=== PATIENT | male | born 1975 | race Caucasian/White ===

== ENCOUNTER 2018-11-16 14:57 | Emergency (ER) | payer OTHER ==
[~2018-11-16] VITALS: Ht 193 cm; Wt 108.9 kg
[~2018-11-16 14:57] MED LIST: IBUP800 PO
[2018-11-16 15:52] LABS: Source, Urine Clean Catch
[2018-11-16 15:53] LABS: BASOPHILS ABSOLUTE AUTO 0.08 K/mm3 (0.00-0.23); BASOPHILS PERCENT AUTO 1 % (0-2); EOSINOPHILS ABSOLUTE AUTO 0.44 K/mm3 (0.00-0.68); EOSINOPHILS PERCENT AUTO 4 % (0-6); Hematocrit 41.7 % (37.0-53.0); Hemoglobin 13.6 g/dL (13.5-17.5); IMMATURE GRAN ABSOLUTE AUTO 0.03 K/mm3 (0.00-0.10); IMMATURE GRAN PERCENT AUTO 0 % (0-1); LYMPHOCYTES ABSOLUTE AUTO 3.28 K/mm3 (0.84-5.20); LYMPHOCYTES PERCENT AUTO 32 % (21-46); MONOCYTES ABSOLUTE AUTO 0.86 K/mm3 (0.16-1.47); MONOCYTES PERCENT AUTO 8 % (4-13); Mean Corpuscular HGB 30.7 pg (26.0-34.0); Mean Corpuscular HGB Conc 32.6 g/dL (31.5-36.5); Mean Corpuscular Volume 94 fL (80-100); Mean Platelet Volume 10.8 fL (9.1-12.4); NEUTROPHILS ABSOLUTE AUTO 5.59 K/mm3 (1.96-9.15); NEUTROPHILS PERCENT AUTO 54 % (41-73); Platelet Count 230 K/mm3 (150-400); RDW Coefficient Variation 12.3 % (11.7-14.2); Red Blood Cell Count 4.43 M/mm3 (4.30-5.90); White Blood Cell Count 10.28 K/mm3 (4.00-11.30)
[2018-11-16 15:59] LABS: Bilirubin, Urine Neg (Neg); Blood, Urine 5+ (Neg); Glucose Qualitative, Urine Neg (Neg); Ketones, Urine 1+ (Neg); Leukocyte Esterase, Urine 1+ (Neg); Nitrite, Urine Neg (Neg); Protein, Urine 2+ (Neg); Urobilinogen, Urine NORM (Normal)
[2018-11-16 16:11] LABS: Amorphous Mod ({null, 0-Heavy}); Appearance, Urine Cloudy (Clear); Bacteria Mod /hpf; Color, Urine Yellow (P-Yellow); Mucus Light ({null, 0-Heavy}); Red Blood Cells, Urine TNTC /hpf (0-2); Squamous Epithelial Cells Rare /hpf (Few)
[2018-11-16 16:14] LABS: Alanine Aminotransfer (ALT/SGP 37 U/L (12-78); Albumin, Blood 3.7 g/dL (3.4-5.0); Albumin/Globulin Ratio 0.9 (0.8-1.8); Alk Phos 78 U/L (50-136); Anion Gap 1 mmol/L (6-16); Aspartate Aminotrans (AST/SGOT 23 U/L (12-37); Bilirubin, Total 0.2 mg/dL (0.1-1.0); Blood Urea Nitrogen 12 mg/dL (8-24); Bun/Creatinine Ratio 15.6 (12.0-20.0); CO2, Blood 29 mmol/L (21-32); Chloride, Blood 109 mmol/L (98-108); Creatinine, Blood 0.77 mg/dL (0.60-1.20); Globulin, Blood 4.1 g/dL (2.2-4.0); Glomerular Filtration Rate >60 (60-); Glucose, Blood 103 mg/dL (70-99); Potassium, Blood 3.9 mmol/L (3.5-5.5); Sodium, Blood 139 mmol/L (136-145); Total Protein, Blood 7.8 g/dL (6.4-8.2)
[2018-11-16] MEDS ORDERED: NAPR500 PO (17:45)
[2018-11-16] MEDS ORDERED: ONDA4ODT MM (18:30)
[2018-11-16] MEDS ORDERED: Flomax0.4 MG PO (18:30)
[2018-11-16] MEDS ORDERED: Vibramycin100 MG PO (18:30)
== END 2018-11-16 18:45 | disposition home or self-care (01) ==
LOC: ER 14:57
PROVIDERS: Physician Assistant
DX: N20.0 Calculus of kidney (principal); K40.90 Unilateral inguinal hernia, without obstruction or gangrene, not specified as recurrent; K02.9 Dental caries, unspecified; K59.00 Constipation, unspecified; F17.200 Nicotine dependence, unspecified, uncomplicated; Z88.0 Allergy status to penicillin
CPT/HCPCS: 36415; 74177; 80053; 81001; 85025; 87086; 99284-25; Q9967

== ENCOUNTER 2018-12-01 10:25 | Day surgery (SDC) | payer OTHER ==
[~2018-12-01] VITALS: Ht 193 cm; Wt 115.9 kg
[~2018-12-01 10:25] MED LIST changes: +Flomax0.4 MG PO; +NAPR500 PO; +ONDA4ODT MM; +Vibramycin100 MG PO
--- NOTE | 2018-12-01 12:25 | NUR ---
12/01/18 1225 Basia Cornejo PT. EMOTIONAL AT TIMES. VERBALIZING HOW HIS HAS BEEN MISSING & HE MISSES HER.
== END 2018-12-01 12:10 | disposition home or self-care (01) ==
LOC: ORSCSDS 10:25
PROVIDERS: Surgery
PROC: 0DJD8ZZ Inspection of Lower Intestinal Tract, Via Natural or Artificial Opening Endoscopic (ICD-10-PCS; principal; 2018-12-01 11:30)
DX: R10.9 Unspecified abdominal pain (principal); K92.1 Melena; K64.8 Other hemorrhoids; K59.00 Constipation, unspecified; E66.9 Obesity, unspecified; Z68.32 Body mass index [BMI] 32.0-32.9, adult; F17.210 Nicotine dependence, cigarettes, uncomplicated; Z79.899 Other long term (current) drug therapy
CPT/HCPCS: J2704; J7120

== ENCOUNTER → 2019-05-30 | Outpatient (CLI) | payer OTHER ==
[2019-05-31 14:29] LABS: Stool Occult Bld Immuno 1 Negative (NEGATIVE)
== END ==
LOC: LAB EV 09:30
PROVIDERS: Physician Assistant
DX: K92.1 Melena (principal)
CPT/HCPCS: 82274

== ENCOUNTER 2019-07-17 06:19 | Emergency (ER) | payer OTHER ==
[~2019-07-17] VITALS: Ht 193 cm; Wt 117.9 kg
[2019-07-17 07:01] LABS: BASOPHILS ABSOLUTE AUTO 0.05 K/mm3 (0.00-0.23); BASOPHILS PERCENT AUTO 0 % (0-2); EOSINOPHILS ABSOLUTE AUTO 0.08 K/mm3 (0.00-0.68); EOSINOPHILS PERCENT AUTO 1 % (0-6); Hematocrit 46.2 % (37.0-53.0); Hemoglobin 15.2 g/dL (13.5-17.5); IMMATURE GRAN ABSOLUTE AUTO 0.06 K/mm3 (0.00-0.10); IMMATURE GRAN PERCENT AUTO 0 % (0-1); LYMPHOCYTES ABSOLUTE AUTO 2.17 K/mm3 (0.84-5.20); LYMPHOCYTES PERCENT AUTO 14 % (21-46); MONOCYTES ABSOLUTE AUTO 1.04 K/mm3 (0.16-1.47); MONOCYTES PERCENT AUTO 7 % (4-13); Mean Corpuscular HGB 29.2 pg (26.0-34.0); Mean Corpuscular HGB Conc 32.9 g/dL (31.5-36.5); Mean Corpuscular Volume 89 fL (80-100); NEUTROPHILS ABSOLUTE AUTO 12.29 K/mm3 (1.96-9.15); NEUTROPHILS PERCENT AUTO 78 % (41-73); Platelet Count 260 K/mm3 (150-400); RDW Standard Deviation 42.4 fL (35.1-46.3); Red Blood Cell Count 5.21 M/mm3 (4.30-5.90); White Blood Cell Count 15.69 K/mm3 (4.00-11.30)
[2019-07-17 07:18] LABS: Alanine Aminotransfer (ALT/SGP 51 U/L (12-78); Albumin, Blood 3.6 g/dL (3.4-5.0); Albumin/Globulin Ratio 0.8 (0.8-1.8); Alk Phos 74 U/L (50-136); Anion Gap 6 mmol/L (6-16); Aspartate Aminotrans (AST/SGOT 26 U/L (12-37); Bilirubin, Total 0.2 mg/dL (0.1-1.0); Blood Urea Nitrogen 15 mg/dL (8-24); Bun/Creatinine Ratio 15.2 (12.0-20.0); CO2, Blood 23 mmol/L (21-32); Chloride, Blood 110 mmol/L (98-108); Creatinine, Blood 0.98 mg/dL (0.60-1.20); Globulin, Blood 4.6 g/dL (2.2-4.0); Glomerular Filtration Rate >60 (60-); Glucose, Blood 134 mg/dL (70-99); Potassium, Blood 4.3 mmol/L (3.5-5.5); Sodium, Blood 139 mmol/L (136-145); Total Protein, Blood 8.2 g/dL (6.4-8.2)
[2019-07-17] MEDS ORDERED: Percocet 5-3251 EACH PO (08:05)
[2019-07-17] MEDS ORDERED: TAMS.4ER PO (08:05)
[2019-07-17 08:54] LABS: Source, Urine Clean Catch
[2019-07-17 09:21] LABS: Bilirubin, Urine Neg (Neg); Blood, Urine 5+ (Neg); Glucose Qualitative, Urine Neg (Neg); Ketones, Urine Neg (Neg); Leukocyte Esterase, Urine Neg (Neg); Nitrite, Urine Neg (Neg); Protein, Urine Neg (Neg); Urobilinogen, Urine NORM (Normal)
[2019-07-17 09:33] LABS: Appearance, Urine Clear (Clear); Color, Urine Yellow (P-Yellow)
[2019-07-17 09:35] LABS: Red Blood Cells, Urine 25-50 /hpf (0-2); White Blood Cells, Urine 0-2 /hpf (0-5)
[2019-07-17 09:36] LABS: Bacteria Not Seen /hpf; Squamous Epithelial Cells Rare /hpf (Few)
== END 2019-07-17 10:30 | disposition home or self-care (01) ==
LOC: ER 06:19
PROVIDERS: Emergency Medicine
DX: N13.2 Hydronephrosis with renal and ureteral calculous obstruction (principal); Z88.0 Allergy status to penicillin; Z87.891 Personal history of nicotine dependence; Z87.442 Personal history of urinary calculi
CPT/HCPCS: 74176; 80053; 81001; 83690; 85025; 96361; 96374; 96375; 96376; 99284-25; J1170; J1885; J2405; J7030

== ENCOUNTER → 2019-09-15 | Outpatient (CLI) | payer OTHER ==
[~2019-09-15] MED LIST changes: +Percocet 5-3251 EACH PO; +TAMS.4ER PO
[2019-09-22 13:47] LABS: BRUSHITE 3.39 ratio (0.00-3.00); CALCIUM OXALATE 9.39 ratio (0.00-6.00); CALCIUM, URINE 20.5 mg/dL (Not Estab.); CALCIUM, URINE 281.9 mg/24 hr (100.0-300.0); CHLORIDE URINE 120 (110-250); CITRIC ACID (CITRATE) 167 mg/L (Not Estab.); CITRIC ACID(CITRATE) 230 mg/24 hr (320-1240); CREATININE, URINE 135.4 mg/dL (Not Estab.); CREATININE, URINE 1861.8 mg/24 hr (1000.0-2000.0); MAGNESIUM, URINE 8.9 mg/dL (Not Estab.); MONOSODIUM URATE 5.79 ratio (0.00-4.00); OSMOLALITY, URINE 601 (300-900); SODIUM, URINE 106 mmol/L (Not Estab.); SODIUM, URINE 146 (58-337); STRUVITE 0.03 ratio (0.00-1.00); URIC ACID 3.45 ratio (0.00-1.20); URINE VOLUME 1375 mL/24 hr (800-1800); URINE VOLUME (PRESERVATIVE) 1375 mL/24 hr (800-1800)
== END | disposition home or self-care (01) ==
LOC: LAB SHORT 09:28 → LAB 09:28 → LAB FUT 08-20 15:20 → EDSTATUS 08-20 15:20
PROVIDERS: Urology
DX: N20.1 Calculus of ureter (principal)
CPT/HCPCS: 81003; 81050; 82131; 82140; 82340; 82436; 82507; 82570; 83735; 83935; 83945; 84105; 84133; 84300; 84392; 84560

== ENCOUNTER → 2020-01-19 | Outpatient (CLI) | payer OTHER ==
[2020-01-30 12:01] LABS: BRUSHITE 1.27 ratio (0.00-3.00); CALCIUM OXALATE 11.09 ratio (0.00-6.00); CALCIUM, URINE 15.5 mg/dL (Not Estab.); CALCIUM, URINE 263.5 mg/24 hr (100.0-300.0); CHLORIDE URINE 146 (110-250); CITRIC ACID (CITRATE) 138 mg/L (Not Estab.); CITRIC ACID(CITRATE) 235 mg/24 hr (320-1240); CREATININE, URINE 143.7 mg/dL (Not Estab.); CREATININE, URINE 2442.9 mg/24 hr (1000.0-2000.0); MAGNESIUM, URINE 6.7 mg/dL (Not Estab.); MONOSODIUM URATE 4.31 ratio (0.00-4.00); OSMOLALITY, URINE 634 (300-900); SODIUM, URINE 163 (58-337); SODIUM, URINE 96 mmol/L (Not Estab.); STRUVITE 0.01 ratio (0.00-1.00); URINE VOLUME 1700 mL/24 hr (800-1800); URINE VOLUME (PRESERVATIVE) 1700 mL/24 hr (800-1800)
== END | disposition home or self-care (01) ==
LOC: LAB 10:08 → LAB SHORT 10:08 → LAB FUT 01-13 07:05
PROVIDERS: Urology
DX: N20.1 Calculus of ureter (principal); R82.991 Hypocitraturia
CPT/HCPCS: 81003; 81050; 82131; 82140; 82340; 82436; 82507; 82570; 83735; 83935; 83945; 84105; 84133; 84300; 84392; 84560

== ENCOUNTER → 2021-10-31 | Outpatient (CLI) | payer OTHER | END | disposition home or self-care (01) | LOC: LAB 16:13 | DX: R10.31 Right lower quadrant pain (principal) ==

== ENCOUNTER 2022-04-23 16:38 | Emergency (ER) | payer OTHER ==
[~2022-04-23] VITALS: Ht 190.5 cm; Wt 77.1 kg
[2022-04-23 18:11] LABS: BASOPHILS ABSOLUTE AUTO 0.07 K/mm3 (0.00-0.23); BASOPHILS PERCENT AUTO 1 % (0-2); EOSINOPHILS ABSOLUTE AUTO 0.28 K/mm3 (0.00-0.68); EOSINOPHILS PERCENT AUTO 3 % (0-6); Hematocrit 41.3 % (37.0-53.0); Hemoglobin 14.4 g/dL (13.5-17.5); IMMATURE GRAN ABSOLUTE AUTO 0.03 K/mm3 (0.00-0.10); IMMATURE GRAN PERCENT AUTO 0 % (0-1); LYMPHOCYTES ABSOLUTE AUTO 3.06 K/mm3 (0.84-5.20); LYMPHOCYTES PERCENT AUTO 27 % (21-46); MONOCYTES ABSOLUTE AUTO 0.85 K/mm3 (0.16-1.47); MONOCYTES PERCENT AUTO 8 % (4-13); Mean Corpuscular HGB 30.4 pg (26.0-34.0); Mean Corpuscular HGB Conc 34.9 g/dL (31.5-36.5); Mean Corpuscular Volume 87 fL (80-100); NEUTROPHILS ABSOLUTE AUTO 7.02 K/mm3 (1.96-9.15); NEUTROPHILS PERCENT AUTO 62 % (41-73); Platelet Count 219 K/mm3 (150-400); RDW Coefficient Variation 12.3 % (11.7-14.2); RDW Standard Deviation 39.8 fL (35.1-46.3); Red Blood Cell Count 4.74 M/mm3 (4.30-5.90); White Blood Cell Count 11.31 K/mm3 (4.00-11.30)
[2022-04-23 18:33] LABS: Albumin, Blood 3.6 g/dL (3.4-5.0); Albumin/Globulin Ratio 0.9 (0.8-1.8); Bilirubin, Total 0.2 mg/dL (0.1-1.0); Bun/Creatinine Ratio 17.3 (12.0-20.0); Calcium, Blood 9.5 mg/dL (8.5-10.1); Creatinine, Blood 0.75 mg/dL (0.60-1.20); Total Protein, Blood 7.6 g/dL (6.4-8.2)
[2022-04-23] MEDS ORDERED: IBUP800 PO (23:06)
[2022-04-23] MEDS ORDERED: OXAYDO5 M1 PO (23:06)
== END 2022-04-23 23:27 | disposition home or self-care (01) ==
LOC: ER 16:38
PROVIDERS: Physician Assistant
DX: S39.011A Strain of muscle, fascia and tendon of abdomen, initial encounter (principal); X50.1XXA Overexertion from prolonged static or awkward postures, initial encounter; Z88.0 Allergy status to penicillin; Z79.899 Other long term (current) drug therapy; Z87.891 Personal history of nicotine dependence
CPT/HCPCS: 36415; 74177; 76870; 80053; 85025; 96374-59; 96375; 99284-25; A9270; J1170; J1885; J2270; J2405; Q9967